=== PATIENT | female | born 1975 | race Caucasian/White ===

== ENCOUNTER 2017-06-15 03:32 | Emergency (ER) | payer OTHER ==
[2017-06-15] MEDS ORDERED: ANXIETY (03:58)
[2017-06-15 04:08] VITALS: BP 162/99; PULSE 105; RESP 18; TEMP 99.1; O2SAT 95
[2017-06-15 04:19] LABS: AUTOMATED NEUTROPHIL # 5.5 TH/MM3 (1.8-7.7); BASOPHIL # 0.1 TH/MM3 (0-0.2); BASOPHIL % 0.6 % (0.0-2.0); EOSINOPHIL # 0.4 TH/MM3 (0-0.4); EOSINOPHIL % 4.6 % (0.0-4.0); HEMATOCRIT 46.7 % (35.0-46.0); HEMOGLOBIN 15.2 GM/DL (11.6-15.3); LYMPH % 24.9 % (9.0-44.0); LYMPHOCYTE # 2.2 TH/MM3 (1.0-4.8); MEAN CELL VOLUME 87.2 FL (80.0-100.0); MEAN CORPUSCULAR HEMOGLOBIN 28.4 PG (27.0-34.0); MEAN CORPUSCULAR HGB CONC 32.6 % (32.0-36.0); MONO % 7.6 % (0.0-8.0); MONOCYTE # 0.7 TH/MM3 (0-0.9); NEUT % 62.3 % (16.0-70.0); PLATELET COUNT 373 TH/MM3 (150-450); RED BLOOD COUNT 5.36 MIL/MM3 (4.00-5.30); RED CELL DISTRIBUTION WIDTH 16.6 % (11.6-17.2); WHITE BLOOD COUNT 8.8 TH/MM3 (4.0-11.0)
--- NOTE | 2017-06-15 04:39 | PD ---
HPI Chief Complaint: Psychiatric Symptoms Time Seen by Provider: 04:32 Travel History International Travel<30 days: No Contact w/Intl Traveler<30days: No Traveled to known affect area: No History of Present Illness HPI 41-year-old female who denies any significant past medical history. She presents under Aranda act initiated by the Police Department. According to her paperwork her boyfriend called the police saying that she was tying a scarf around her neck and then tying it to a bedpost in an attempt to harm her self. The patient reports that her previous committed suicide. She reports that today she was having an argument with her boyfriend and her boyfriend was goading her and telling her "no wonder he killed himself, maybe you should kill yourself to.". She reports that during the argument she did tie scar from the post in order to scare him but she denies any desire to hurt herself or anyone else. She admits to drinking some whiskey tonight. She endorses occasional marijuana use. She has no medical complaints at this time. [facility] Past Medical History Medical History: Denies Significant Hx Asthma: No Bipolar Disorder: No Anxiety: No Depression: No High Cholesterol: No Diabetes: No Musculoskeletal: Yes Seizures: No ?: Unknown Past Surgical History Ear Surgery: Yes Social History Alcohol Use: Yes Tobacco Use: No Substance Use: Yes (Marijuana) Allergies-Medications (Allergen,Severity, Reaction): Coded Allergies: No Known Allergies (Unverified , 06/15/17) Reported Meds & Prescriptions Reported Meds & Active Scripts Active Reported [Anxiety] Review of Systems Except as stated in HPI: all other systems reviewed are Neg Physical Exam Narrative GENERAL: Well-developed well-nourished female in no acute distress SKIN: Warm and dry. HEAD: Atraumatic. Normocephalic. EYES: Pupils equal and round. No scleral icterus. No injection or drainage. ENT: No nasal bleeding or discharge. Mucous membranes pink and moist. NECK: Trachea midline. No JVD. CARDIOVASCULAR: Regular rate and rhythm. No murmur appreciated. RESPIRATORY: No accessory muscle use. Clear to auscultation. Breath sounds equal bilaterally. GASTROINTESTINAL: Abdomen soft, non-tender, nondistended. Hepatic and splenic margins not palpable. MUSCULOSKELETAL: No obvious deformities. No clubbing. No cyanosis. No edema. NEUROLOGICAL: Awake and alert. No obvious cranial nerve deficits. Motor grossly within normal limits. Normal speech. PSYCHIATRIC: Appropriate mood and affect; insight and judgment normal. Data Data Last Documented VS Vital Signs Date Time Temp Pulse Resp B/P (MAP) Pulse Ox O2 Delivery O2 Flow Rate FiO2 06/15/17 04:08 99.1 105 18 162/99 (120) 95 Room Air Orders Orders Complete Blood Count With Diff (06/15/17 03:39) Comprehensive Metabolic Panel (06/15/17 03:39) Thyroid Stimulating Hormone (06/15/17 03:39) Ed Urine Pregnancytest Poc (06/15/17 03:39) Psych Screen (06/15/17 03:39) Drug Screen, Random Urine (06/15/17 03:39) Alcohol (Ethanol) (06/15/17 03:39) Labs Laboratory Tests Test 06/15/17 03:55 06/15/17 04:47 White Blood Count 8.8 TH/MM3 Red Blood Count 5.36 MIL/MM3 Hemoglobin 15.2 GM/DL Hematocrit 46.7 % Mean Corpuscular Volume 87.2 FL Mean Corpuscular Hemoglobin 28.4 PG Mean Corpuscular Hemoglobin Concent 32.6 % Red Cell Distribution Width 16.6 % Platelet Count 373 TH/MM3 Mean Platelet Volume 7.0 FL Neutrophils (%) (Auto) 62.3 % Lymphocytes (%) (Auto) 24.9 % Monocytes (%) (Auto) 7.6 % Eosinophils (%) (Auto) 4.6 % Basophils (%) (Auto) 0.6 % Neutrophils # (Auto) 5.5 TH/MM3 Lymphocytes # (Auto) 2.2 TH/MM3 Monocytes # (Auto) 0.7 TH/MM3 Eosinophils # (Auto) 0.4 TH/MM3 Basophils # (Auto) 0.1 TH/MM3 CBC Comment DIFF FINAL Differential Comment Blood Urea Nitrogen 7 MG/DL Creatinine 0.78 MG/DL Random Glucose 128 MG/DL Total Protein 8.5 GM/DL Albumin 3.9 GM/DL Calcium Level 8.5 MG/DL Alkaline Phosphatase 145 U/L Aspartate Amino Transf (AST/SGOT) 17 U/L Alanine Aminotransferase (ALT/SGPT) 22 U/L Total Bilirubin 0.3 MG/DL Sodium Level 139 MEQ/L Potassium Level 3.7 MEQ/L Chloride Level 109 MEQ/L Carbon Dioxide Level 17.7 MEQ/L Anion Gap 12 MEQ/L Estimat Glomerular Filtration Rate 81 ML/MIN Thyroid Stimulating Hormone 3rd Gen 1.890 uIU/ML Ethyl Alcohol Level 22 MG/DL Urine Opiates Screen NEG Urine Barbiturates Screen NEG Urine Amphetamines Screen NEG Urine Benzodiazepines Screen NEG Urine Cocaine Screen NEG Urine Cannabinoids Screen POS MDM Medical Decision Making Medical Screen Exam Complete: Yes Emergency Medical Condition: Yes Medical Record Reviewed: Yes Differential Diagnosis Adjustment reaction, acute psychosis, major depressive disorder, depressive disorder not otherwise specified, bipolar disorder, schizophrenia Narrative Course 41-year-old female presents under Aranda act for psychiatric evaluation. Mental health screening discussed with the patient. Psychiatric screen ordered. Lab work has been reviewed. Alcohol level is 22. Drug screen is positive for cannabinoids. The patient is medically cleared for psychiatric disposition. Diagnosis Primary Impression: Medical clearance for psychiatric admission Boubacar Small Jun 15, 2017 04:39
[2017-06-15 04:40] LABS: ALBUMIN 3.9 GM/DL (3.4-5.0); AST (GOT) 17 U/L (15-37); BICARBONATE 17.7 MEQ/L (21.0-32.0); BLOOD UREA NITROGEN 7 MG/DL (7-18); CALCIUM 8.5 MG/DL (8.5-10.1); CHLORIDE 109 MEQ/L (98-107); CREATININE 0.78 MG/DL (0.50-1.00); GLOMERULAR FILTRATION RATE 81 ML/MIN (>89); GLUCOSE,RANDOM 128 MG/DL (74-106); SODIUM (NA) 139 MEQ/L (136-145)
[2017-06-15 04:41] LABS: ALT (GPT) 22 U/L (10-53)
[2017-06-15 04:50] LABS: ALKALINE PHOSPHATASE 145 U/L (45-117); TOTAL BILIRUBIN ADULT 0.3 MG/DL (0.2-1.0); TOTAL PROTEIN 8.5 GM/DL (6.4-8.2)
[2017-06-15 06:37] VITALS: BP 150/94; PULSE 122; RESP 18; TEMP 98.1; O2SAT 98
[2017-06-15 11:43] VITALS: BP 154/95; PULSE 94; RESP 16; TEMP 98.2; O2SAT 96
--- NOTE | 2017-06-15 13:36 | PD.PSY.CON ---
Provisional Diagnosis Admission Date Range I. Adjustment disorder with depressed mood, alcohol abuse, marijuana abuse History of Present Illness Service Psychiatry Consult Requested By EDMD Reason for Consult Rosi novak Primary Care Physician No Primary Care Physician HPI Patient is a 41-year-old white female comes here under Aranda act I the [facility] Department dated 06/15/17 at 0300 document reviewed. Stating received a 911 called by the subjects boyfriend he stated that Stephani Howell scarf around her neck then titrated to the bedpost in an attempt to harm herself once on scene Stephani denied the incident however I observing scarf tied to the bed while interviewing both parties Stephani later admitted to the incident in route to the hospital patient seen screened in the ED urine toxicology positive for marijuana blood alcohol level of 22. At the present time patient sitting quietly in her room. Of interest EMR is been review this is patient's [facility] visit to [facility]. Patient is alert oriented calm cooperative white female who appears her stated age. He states she had a fight with her boyfriend. There are Goering and he brought up the fact that patient' s first committed suicide while hospitalized of [facility] last year by he himself in the bathroom. This made her upset and she did this gesture. She denies any suicidal ideation intent or plan at any time with this denies any prior suicide attempts. She does state she has some psychiatric counseling after her but denied any psychotropic medications or hospitalizations. She states she rarely uses marijuana and only uses alcohol occasionally. She lives alone in the home with her 2 children 16 and 20 years of age. Patient denies any physical or sexual abuse. Denies any significant mental health issues and family. At this time patient does not meet Aranda criteria will lift Rosi act. As okay by psych for discharge when medically clear and stable. No Rx by me. She should follow-up with her PCP, and perhaps counseling of the community Review of Systems Constitutional: DENIES: Diaphoretic episodes, Fatigue, Fever, Weight gain, Weight loss, Chills, Dizziness, Change in appetite, Night Sweats Endocrine: DENIES: Abnorml menstrual pattern, Heat/cold intolerance, Polydipsia , Polyuria, Polyphagia Eyes: DENIES: Blurred vision, Diplopia, Eye inflammation, Eye pain, Vision loss , Photosensitivity, Double Vision Ears, nose, mouth, throat: DENIES: Tinnitus, Hearing loss, Vertigo, Nasal discharge, Oral lesions, Throat pain, Hoarseness, Ear Pain, Running Nose, Epistaxis, Sinus Pain, Toothache, Odynophagia Respiratory: DENIES: Apneas, Cough, Snoring, Wheezing, Hemoptysis, Sputum production, Shortness of breath Cardiovascular: DENIES: Chest pain, Palpitations, Syncope, Dyspnea on Exertion , PND, Lower Extremity Edema, Orthopnea, Claudication Genitourinary: DENIES: Abnormal vaginal bleeding, Dysmenorrhea, Dyspareunia, Sexual dysfunction, Urinary frequency, Urinary incontinence, Urgency, Hematuria , Dysuria, Nocturia, Vaginal discharge Musculoskeletal: DENIES: Joint pain, Muscle aches, Stiffness, Joint Swelling, Back pain, Neck pain Integumentary: DENIES: Abnormal pigmentation, Pruritus, Rash, Nail changes, Breast masses, Breast skin changes, Nipple discharge Hematologic/lymphatic: DENIES: Bruising, Lymphadenopathy Immunologic/allergic: DENIES: Eczema, Urticaria Neurologic: DENIES: Abnormal gait, Headache, Localized weakness, Paresthesias, Seizures, Speech Problems, Tremor, Poor Balance Psychiatric: COMPLAINS OF: Depression, Suicidal Ideation Past Family Social History Coded Allergies: No Known Allergies (Unverified , 06/15/17) Reported Medications [Anxiety] No Conflict Check 06/15/17 Family Psych History Denies Social History Patient lives with 2 children has boyfriend Patient's Strengths (min. 2) Patient verbal able axis health care Physical Exam Patient medically cleared ED exam reviewed and agreed with Vital Signs Vital Signs Date Time Temp Pulse Resp B/P (MAP) Pulse Ox O2 Delivery O2 Flow Rate FiO2 06/15/17 11:43 98.2 94 16 154/95 (114) 96 Room Air Lab Results Test 06/15/17 03:55 06/15/17 04:47 White Blood Count 8.8 TH/MM3 Red Blood Count 5.36 MIL/MM3 Hemoglobin 15.2 GM/DL Hematocrit 46.7 % Mean Corpuscular Volume 87.2 FL Mean Corpuscular Hemoglobin 28.4 PG Mean Corpuscular Hemoglobin Concent 32.6 % Red Cell Distribution Width 16.6 % Platelet Count 373 TH/MM3 Mean Platelet Volume 7.0 FL Neutrophils (%) (Auto) 62.3 % Lymphocytes (%) (Auto) 24.9 % Monocytes (%) (Auto) 7.6 % Eosinophils (%) (Auto) 4.6 % Basophils (%) (Auto) 0.6 % Neutrophils # (Auto) 5.5 TH/MM3 Lymphocytes # (Auto) 2.2 TH/MM3 Monocytes # (Auto) 0.7 TH/MM3 Eosinophils # (Auto) 0.4 TH/MM3 Basophils # (Auto) 0.1 TH/MM3 CBC Comment DIFF FINAL Differential Comment Blood Urea Nitrogen 7 MG/DL Creatinine 0.78 MG/DL Random Glucose 128 MG/DL Total Protein 8.5 GM/DL Albumin 3.9 GM/DL Calcium Level 8.5 MG/DL Alkaline Phosphatase 145 U/L Aspartate Amino Transf (AST/SGOT) 17 U/L Alanine Aminotransferase (ALT/SGPT) 22 U/L Total Bilirubin 0.3 MG/DL Sodium Level 139 MEQ/L Potassium Level 3.7 MEQ/L Chloride Level 109 MEQ/L Carbon Dioxide Level 17.7 MEQ/L Anion Gap 12 MEQ/L Estimat Glomerular Filtration Rate 81 ML/MIN Thyroid Stimulating Hormone 3rd Gen 1.890 uIU/ML Ethyl Alcohol Level 22 MG/DL Urine Opiates Screen NEG Urine Barbiturates Screen NEG Urine Amphetamines Screen NEG Urine Benzodiazepines Screen NEG Urine Cocaine Screen NEG Urine Cannabinoids Screen POS Mental Status Examination Appearance: Appropriate Consciousness: Alert Orientation: x4 Motor Activity: Normal gait Speech: Unremarkable Language: Adequate Fund of Knowledge: Adequate Attention and Concentration: Adequate Memory: Unremarkable Mood: Sad (continues somewhat sad when referring to the suicide of her ) Affect: Other (good range of motion intensity) Thought Process & Associations: Intact Thought Content: Appropriate Hallucination Type: None Delusion Type: None Suicidal Ideation: No Suicidal Plan: No Suicidal Intention: No Homicidal Ideation: No Homicidal Plan: No Homicidal Intention: No Insight: Fair Judgment: Impulsive Assessment & Plan Problem List: (1) Adjustment disorder with depressed mood ICD Codes: F43.21 - Adjustment disorder with depressed mood (2) Alcohol abuse ICD Codes: F10.10 - Alcohol abuse, uncomplicated (3) Marijuana abuse ICD Codes: F12.10 - Cannabis abuse, uncomplicated Assessment & Plan Estimated LOS: days patient does not meet Aranda criteria will lift Aranda act as okay by psych for discharge or medically clear and stable, no Rx by me, would possibly reach for to counseling in the community the remain some grief over the of her . Also referred to NA and AA Discharge Planning See above Request HC Surrog/Guard Advoc?: No Héctor Soto MD Jun 15, 2017 13:36
--- NOTE | 2017-06-15 14:39 | PD ---
Physical Exam Time Seen by Provider: 14:[address] Soto has evaluated patient, lifted Aranda act and cleared the patient for discharge. Data Data Last Documented VS Vital Signs Date Time Temp Pulse Resp B/P (MAP) Pulse Ox O2 Delivery O2 Flow Rate FiO2 06/15/17 11:43 98.2 94 16 154/95 (114) 96 Room Air Orders Orders Complete Blood Count With Diff (06/15/17 03:39) Comprehensive Metabolic Panel (06/15/17 03:39) Thyroid Stimulating Hormone (06/15/17 03:39) Ed Urine Pregnancytest Poc (06/15/17 03:39) Psych Screen (06/15/17 03:39) Drug Screen, Random Urine (06/15/17 03:39) Alcohol (Ethanol) (06/15/17 03:39) Diet Regular Basic (06/15/17 Lunch) Labs Laboratory Tests Test 06/15/17 03:55 06/15/17 04:47 White Blood Count 8.8 TH/MM3 Red Blood Count 5.36 MIL/MM3 Hemoglobin 15.2 GM/DL Hematocrit 46.7 % Mean Corpuscular Volume 87.2 FL Mean Corpuscular Hemoglobin 28.4 PG Mean Corpuscular Hemoglobin Concent 32.6 % Red Cell Distribution Width 16.6 % Platelet Count 373 TH/MM3 Mean Platelet Volume 7.0 FL Neutrophils (%) (Auto) 62.3 % Lymphocytes (%) (Auto) 24.9 % Monocytes (%) (Auto) 7.6 % Eosinophils (%) (Auto) 4.6 % Basophils (%) (Auto) 0.6 % Neutrophils # (Auto) 5.5 TH/MM3 Lymphocytes # (Auto) 2.2 TH/MM3 Monocytes # (Auto) 0.7 TH/MM3 Eosinophils # (Auto) 0.4 TH/MM3 Basophils # (Auto) 0.1 TH/MM3 CBC Comment DIFF FINAL Differential Comment Blood Urea Nitrogen 7 MG/DL Creatinine 0.78 MG/DL Random Glucose 128 MG/DL Total Protein 8.5 GM/DL Albumin 3.9 GM/DL Calcium Level 8.5 MG/DL Alkaline Phosphatase 145 U/L Aspartate Amino Transf (AST/SGOT) 17 U/L Alanine Aminotransferase (ALT/SGPT) 22 U/L Total Bilirubin 0.3 MG/DL Sodium Level 139 MEQ/L Potassium Level 3.7 MEQ/L Chloride Level 109 MEQ/L Carbon Dioxide Level 17.7 MEQ/L Anion Gap 12 MEQ/L Estimat Glomerular Filtration Rate 81 ML/MIN Thyroid Stimulating Hormone 3rd Gen 1.890 uIU/ML Ethyl Alcohol Level 22 MG/DL Urine Opiates Screen NEG Urine Barbiturates Screen NEG Urine Amphetamines Screen NEG Urine Benzodiazepines Screen NEG Urine Cocaine Screen NEG Urine Cannabinoids Screen POS MDM Supervised Visit with CYNDI: No Narrative Course Dr. Soto has evaluated patient, lifted Rosi novak and cleared the patient for discharge. Patient contracts safety. Denies suicidal or homicidal ideations. Patient will be provided community resource packet to [facility] for follow-up. Has friends and family for support. Patient was medically cleared by alternate provider prior to psych screening. Patient has been evaluated by psychiatry and and is now cleared for discharge. Diagnosis Primary Impression: Adjustment disorder with depressed mood Referrals: [facility] (Out patient) [facility] Primary Care Physician Psychiatrist Mariluz NOVAK Behavioral Patient Instructions: General Instructions, Mood Disorders (ED) Additional Instruction: Contract safety to your self and others Follow-up with psychiatry Follow-up with primary care provider Follow-up with David Bains Return to the emergency department immediately with worsening of symptoms Med/Other Pt SpecificInfo: No Change to Meds, No Meds Exist/No RX given Disposition: 01 DISCHARGE HOME Condition: Stable Terese Acevedo Jun 15, 2017 14:39
== END 2017-06-15 14:45 | disposition home or self-care (01) ==
LOC: NEPJ 03:32
DX: F43.21 Adjustment disorder with depressed mood (principal); F41.9 Anxiety disorder, unspecified; F10.10 Alcohol abuse, uncomplicated; Y90.1 Blood alcohol level of 20-39 mg/100 ml; F12.10 Cannabis abuse, uncomplicated
CPT/HCPCS: 80053; 80307; 84443; 84703; 85025; 99284